=== PATIENT | male | born 1960 | race Caucasian/White ===

== ENCOUNTER 2018-04-15 10:38 | Emergency (ER) | payer OTHER, SELFPAY ==
--- NOTE | 2018-04-15 10:59 | ERPHSYRPT ---
- History of Present Illness Time Seen by Provider: 04/15/18 10:54 Source: patient Exam Limitations: no limitations Physician History: 57-year-old white male with history of cataracts, myocardial infarction, high blood pressure, COPD, GERD, panic disorder, cardiac pacemaker. Arrives with complaints of sudden onset of a slurry speech and confusion symptoms since 9:30 this morning. Past medical history includes cataracts, myocardial infarction, high blood pressure, COPD, GERD, panic disorder, cardiac pacemaker. Past surgical history includes cardiac catheter, pacemaker, right elbow replacement, prostate surgery Timing/Duration: today Severity: moderate Modifying Factors: Improves With: nothing Associated Symptoms: chest pain, other (left arm and leg pain), No nausea, No vomiting, No abdominal pain, No shortness of breath, No heartburn, No diaphoresis, No cough, No chills (didn't have any vomiting ), No fever, No headaches, No loss of appetite, No malaise, No rash, No syncope, No seizure (he had left arm and leg ), No weakness Allergies/Adverse Reactions: codeine Allergy (Severe, Verified 04/15/18 10:43) throat swelling Home Medications: Aspirin 81 gm Chew [Baby Aspirin 81 mg Chew] 81 mg DAILY 04/15/18 [History ] Metoprolol Tartrate 25 mg [Lopressor 25MG Tab] 25 mg DAILY 04/15/18 [ History] Omeprazole 20 MG [Prilosec 20 mg] 20 mg DAILY 04/15/18 [History] Pregabalin [Lyrica 100Mg] 225 mg DAILY 04/15/18 [History] Hx Tetanus, Diphtheria Vaccination/Date Given: Yes Hx Influenza Vaccination/Date Given: Yes Hx Pneumococcal Vaccination/Date Given: Yes - Review of Systems Constitutional: Other (well-developed well-nourished white male, slurred speech stuttering), No Fever, No Chills Eyes: No Symptoms Ears, Nose, & Throat: No Symptoms Respiratory: No Cough, No Dyspnea Cardiac: Chest Pain, No Edema, No Syncope Abdominal/Gastrointestinal: No Abdominal Pain, No Nausea, No Vomiting, No Diarrhea Genitourinary Symptoms: No Dysuria Musculoskeletal: No Back Pain, No Neck Pain Skin: No Rash Neurological: No Dizziness, No Focal Weakness, No Sensory Changes Psychological: No Symptoms Endocrine: No Symptoms All Other Systems: Reviewed and Negative - Past Medical History Pertinent Past Medical History: Yes ENT History: Cataracts Cardiac History: Myocardial Infarction (MS), Hypertension, Other Respiratory History: Other, COPD Musculoskeletal History: Other GI Medical History: No Pertinent History, GERD History: No Pertinent History Psycho-Social History: Panic Disorder Male Reproductive Disorders: No Pertinent History Other Medical History: , pacemaker - Past Surgical History Past Surgical History: Yes Cardiac: Cardiac Catheterization, Pacemaker Musculoskeletal: Orthopedic Surgery Male Surgical History: Prostate Surgery Other Surgical History: rt elbow replacement,prostate cancer - Social History Smoking Status: Current every day smoker How long have you smoked: 38 Exposure to second hand smoke: No Drug Use: none Patient Lives Alone: No - Nursing Vital Signs Nursing Vital Signs: Initial Vital Signs Temperature 98.2 F 04/15/18 10:52 Pulse Rate 60 04/15/18 10:52 Respiratory Rate 16 04/15/18 10:52 Blood Pressure 156/96 04/15/18 10:52 O2 Sat by Pulse Oximetry 96 04/15/18 10:52 Pain Scale Pain Intensity 4 - Physical Exam General Appearance: other (well-developed well-nourished white male, slurry speech stutters, alert, cooperative) Eye Exam: PERRL/EOMI, eyes nml inspection Ears, Nose, Throat Exam: normal ENT inspection, TMs normal, pharynx normal, moist mucous membranes Neck Exam: normal inspection, non-tender, supple, full range of motion Respiratory Exam: normal breath sounds, lungs clear, No respiratory distress Cardiovascular Exam: regular rate/rhythm, normal heart sounds, normal peripheral pulses Gastrointestinal/Abdomen Exam: soft, normal bowel sounds, No tenderness, No mass Back Exam: normal inspection, normal range of motion, No CVA tenderness, No vertebral tenderness Extremity Exam: normal inspection, normal range of motion, pelvis stable Neurologic Exam: alert, cooperative, 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 nml as tested, slurred speech, No motor deficits, No sensory deficit, No uncooperative, No intoxicated appearance, No facial droop (patient without facial droop tongue midline, dry box tender equal 5 over 5, able to perform finger to nose bilaterally, full range of motion all extremities) Skin Exam: normal color, warm, dry, No rash Lymphatic Exam: adenopathy SpO2 Interpretation: normal (96%) SpO2: 96 Oxygen Delivery: Room Air - Course Nursing assessment & vital signs reviewed: Yes EKG Interpreted by Me: RATE (54 bpm), NORMAL AXIS, Other (EKGsinus bradycardia, 54 bpm, normal axis, no acute ST or T wav compared to December 07, 2015) - Radiology Exams Chest X-ray Interpretation: Discussed w/ radiologist (chest x-ray: Impression: Normal heart and lungs with left sided dual-lead pacemaker. Bony thorax intact with mild degenerative changes) - CT Exams Head CT Interpretation: Discussed w/radiologist (head CT without contrast: Impression : 1. No acute intracranial abnormalities. 2. Minimal paranasal sinus disease. ) Ordered Tests: Active Orders 24 hr Category Date Time Status Accucheck STAT Care 04/15/18 10:49 Active EKG-ER Only STAT Care 04/15/18 10:49 Active IV Insertion STAT Care 04/15/18 10:49 Active Pulse Oximetry (ED) STAT Care 04/15/18 10:49 Active CHEST 1 VIEW (PORTABLE) Stat Exams 04/15/18 10:50 Completed HEAD WITHOUT CONTRAST [CT] Stat Exams 04/15/18 10:40 Completed CBC W DIFF Stat Lab 04/15/18 11:15 Completed CMP Stat Lab 04/15/18 11:15 Completed PROTIME WITH INR Stat Lab 04/15/18 11:15 Completed PTT Stat Lab 04/15/18 11:15 Completed TROPONIN Q3H Lab 04/15/18 11:15 Completed TROPONIN Q3H Lab 04/15/18 14:00 Ordered TROPONIN Q3H Lab 04/15/18 17:00 Ordered TROPONIN Q3H Lab 04/15/18 20:00 Ordered TROPONIN Q3H Lab 04/15/18 23:00 Ordered UA W/RFX UR CULTURE Stat Lab 04/15/18 10:50 Uncollected Urine Triage Profile Stat Lab 04/15/18 10:53 Uncollected Medication Summary Generic Name Dose Route Start Last Admin Trade Name Freq PRN Reason Stop Dose Admin Sodium Chloride 1,000 mls @ 50 mls/hr 04/15/18 11:00 04/15/18 11:23 Sodium Chloride 0.9% 1000 Ml IV 05/15/18 10:59 50 mls/hr .Q20H ETIENNE Administration Discontinued Medications Generic Name Dose Route Start Last Admin Trade Name Freq PRN Reason Stop Dose Admin Aspirin 324 mg 04/15/18 12:33 04/15/18 12:44 Baby Aspirin 81 Mg Chew PO 04/15/18 12:34 324 mg STAT ONE Administration Aspirin Confirm 04/15/18 12:40 Baby Aspirin 81 Mg Chew Administered 04/15/18 12:41 Dose 324 mg .ROUTE .STK-MED ONE Lab/Rad Data: Laboratory Result Diagrams 04/15/18 11:15 04/15/18 11:15 Laboratory Results 04/15/18 04/15/18 04/15/18 Range/Units 11:15 11:15 11:15 WBC (4.0-10.5) K/mm3 RBC (4.1-5.6) M/mm3 Hgb (12.5-18.0) gm/dl Hct (42-50) % MCV (78-100) fl MCH (26-32) pg MCHC (32-36) g/dl RDW (11.5-14.0) % Plt Count (150-450) K/mm3 MPV (6-9.5) fl Gran % (36.0-66.0) % Eos # (Auto) (0-0.5) Absolute Lymphs (auto) (1.0-4.6) Absolute Monos (auto) (0.0-1.3) Lymphocytes % (24.0-44.0) % Monocytes % (0.0-12.0) % Eosinophils % (0.00-5.0) % Basophils % (0.0-0.4) % Absolute Granulocytes (1.4-6.9) Basophils # (0-0.4) PT 10.9 (8.83-12.87) SECONDS INR 0.94 (0.8-3.0) APTT 27.0 (24.1-36.1) SECONDS Sodium 140 (137-145) mmol/L Potassium 4.4 (3.5-5.1) mmol/L Chloride 103 (98-107) mmol/L Carbon Dioxide 28 (22-30) mmol/L Anion Gap 12.8 (5-15) MEQ/L BUN 21 H (9-20) mg/dL Creatinine 0.86 (0.66-1.25) mg/dL Estimated GFR > 60.0 ML/MIN Glucose 75 (74-106) mg/dL Calcium 9.1 (8.4-10.2) mg/dL Total Bilirubin 0.20 (0.2-1.3) mg/dL AST 31 (17-59) U/L ALT 21 (0-50) U/L Alkaline Phosphatase 22 L (38-126) U/L Troponin I < 0.012 (0.000-0.034) ng/mL Serum Total Protein 6.7 (6.3-8.2) g/dL Albumin 4.2 (3.5-5.0) g/dL 04/15/18 Range/Units 11:15 WBC 10.4 (4.0-10.5) K/mm3 RBC 5.33 (4.1-5.6) M/mm3 Hgb 17.2 (12.5-18.0) gm/dl Hct 51.2 H (42-50) % MCV 96.1 (78-100) fl MCH 32.3 H (26-32) pg MCHC 33.6 (32-36) g/dl RDW 13.1 (11.5-14.0) % Plt Count 188 (150-450) K/mm3 MPV 9.0 (6-9.5) fl Gran % 61.7 (36.0-66.0) % Eos # (Auto) 0.31 (0-0.5) Absolute Lymphs (auto) 2.69 (1.0-4.6) Absolute Monos (auto) 0.94 (0.0-1.3) Lymphocytes % 25.8 (24.0-44.0) % Monocytes % 9.0 (0.0-12.0) % Eosinophils % 3.0 (0.00-5.0) % Basophils % 0.5 (0.0-0.4) % Absolute Granulocytes 6.43 (1.4-6.9) Basophils # 0.05 (0-0.4) PT (8.83-12.87) SECONDS INR (0.8-3.0) APTT (24.1-36.1) SECONDS Sodium (137-145) mmol/L Potassium (3.5-5.1) mmol/L Chloride (98-107) mmol/L Carbon Dioxide (22-30) mmol/L Anion Gap (5-15) MEQ/L BUN (9-20) mg/dL Creatinine (0.66-1.25) mg/dL Estimated GFR ML/MIN Glucose (74-106) mg/dL Calcium (8.4-10.2) mg/dL Total Bilirubin (0.2-1.3) mg/dL AST (17-59) U/L ALT (0-50) U/L Alkaline Phosphatase (38-126) U/L Troponin I (0.000-0.034) ng/mL Serum Total Protein (6.3-8.2) g/dL Albumin (3.5-5.0) g/dL - Progress Progress: improved Progress Note: 04/15/18 11:00 This is a 57-year-old white male with history of cataracts, myocardial infarction, high blood pressure, COPD, GERD, panic disorder, cardiac pacemaker. He is brought by his with complaints of sudden onset of slurry speech appear to be confused he occurred at approximately 9:30 today. On arrival patient does have slurry speech she is able to answer questions he does stutter at times. He is able to stick his tongue out straight he can wrinkle his forehead he does not have obvious facial droop. Glass Tinter are equal and symmetrical 5 over 5 patient is able to perform finger to nose bilaterally however he has some problems with the right side secondary to blood pressure cuff being in place. He is able to move both feet. Glascow coma scale is 15. 04/15/18 12:16 tele- neurology consult was ordered And patient was evaluated by Dr. Cristino Castillo I discussed case with him he does not feel like the patient has a a focal defect. He states that there were some inconsistencies on the speech evaluation. Patient has chronic problems with his left lower extremity he did not see any focal changes. He felt that the patient could be evaluated here consider a repeat CT in 24 hours. Patient's other labs essentially normal. Awaiting for troponin. Patient is having some bradycardia but blood pressure stable. 04/15/18 12:35 Patient's labs are essentially normal Dr. Castillo did feel like the patient could be given aspirin which he will be given here in the emergency room 324 mg. The patient's family decided that they wish the patient to be admitted to [facility] apparently their family doctor is Dr. Samuel and they were leaning towards [facility] anyway. Contacted Dr. Sen emergency room doctor at [facility] through [facility] one call. I've discussed the patient's case with her and she has excepted the patient. - Departure Time of Disposition: 12:37 Departure Disposition: Transfer ([facility] Dr. Sen) Clinical Impression: Speech disorder Change in mental status Qualifiers: Altered mental status type: unspecified Qualified Code(s): R41.82 - Altered mental status, unspecified Chest pain Qualifiers: Chest pain type: unspecified Qualified Code(s): R07.9 - Chest pain, unspecified Condition: Fair Critical Care Time: No Referrals: DAMIEN HARO [CONSULTING PHYSICIAN] -
[2018-04-15] MEDS ORDERED: Sodium Chloride 0.9% 1000 ML 1,000 ML IV SCH (11:00)
--- NOTE | 2018-04-15 11:12 | XRAY ---
Indication: Confusion, slurred speech, and left upper/lower extremity numbness. Multiple contiguous axial images obtained through the head without contrast. Comparison: None Ventriculosulcal pattern appears symmetric. No acute intracranial hemorrhage, abnormal extra-axial fluid collection, or mass effect. Fourth ventricle is midline without hydrocephalus. Bledsoe-white matter differentiation preserved. Bony calvarium intact. Minimal right ethmoid sinus mucosal thickening. Mastoid air cells are clear. Impression: 1. No acute intracranial abnormalities. 2. Minimal paranasal sinus disease. CT DI 65.42
--- NOTE | 2018-04-15 11:18 | XRAY ---
Indication: Headache, nausea, dizziness, and left extremity numbness. Comparison: None Portable chest demonstrates normal heart and lungs with left-sided dual-lead pacemaker. Bony thorax intact with mild degenerative changes.
[2018-04-15] MEDS ORDERED: Sodium Chloride 0.9% 1000 ML 1,000 ML ONE (11:20)
[2018-04-15 11:22] LABS: BASOPHIL % 0.5 % (0.0-0.4); Basophil (Absolute #) 0.05 (0-0.4); Eosinophil (Absolute #) 0.31 (0-0.5); Granulocyte Absolute (ANC) 6.43 (1.4-6.9); Granulocytes % 61.7 % (36.0-66.0); Hematocrit 51.2 % (42-50); Hemoglobin 17.2 gm/dl (12.5-18.0); Lymphocyte (Absolute #) 2.69 (1.0-4.6); Lymphocytes % 25.8 % (24.0-44.0); Mean Cell Volume 96.1 fl (78-100); Mean Corpuscular Hemoglobin 32.3 pg (26-32); Mean Corpuscular Hgb Concent. 33.6 g/dl (32-36); Monocyte (Absolute #) 0.94 (0.0-1.3); Platelet Count 188 K/mm3 (150-450); Red Blood Count 5.33 M/mm3 (4.1-5.6); Red Cell Distribution Width 13.1 % (11.5-14.0); White Blood Count 10.4 K/mm3 (4.0-10.5)
[2018-04-15 11:50] LABS: INR 0.94 (0.8-3.0)
[2018-04-15 12:00] LABS: ALBUMIN 4.2 g/dL (3.5-5.0); ALKALINE PHOSPHATASE 22 U/L (38-126); ANION GAP 12.8 MEQ/L (5-15); BLOOD UREA NITROGEN 21 mg/dL (9-20); CHLORIDE 103 mmol/L (98-107); Calcium 9.1 mg/dL (8.4-10.2); Carbon Dioxide 28 mmol/L (22-30); Creatinine 1 0.86 mg/dL (0.66-1.25); Glucose 75 mg/dL (74-106); Potassium 4.4 mmol/L (3.5-5.1); SGOT/AST 31 U/L (17-59); SGPT/ALT 21 U/L (0-50); SODIUM 140 mmol/L (137-145); Total Protein 6.7 g/dL (6.3-8.2)
[2018-04-15 12:16] VITALS: BP 157/93; PULSE 48; O2SAT 96
[2018-04-15] MEDS ORDERED: BABY ASPIRIN 81 MG CHEW PO ONE (12:33)
[2018-04-15] MEDS ORDERED: BABY ASPIRIN 81 MG CHEW ONE (12:40)
== END 2018-04-15 13:34 | disposition short-term general hospital (02) ==
LOC: ED 10:38
DX: R47.9 Unspecified speech disturbances (principal); R41.81 Age-related cognitive decline; R07.9 Chest pain, unspecified; I25.2 Old myocardial infarction; I10 Essential (primary) hypertension; J44.9 Chronic obstructive pulmonary disease, unspecified; K21.9 Gastro-esophageal reflux disease without esophagitis; Z95.0 Presence of cardiac pacemaker; Z72.0 Tobacco use; Z79.899 Other long term (current) drug therapy
CPT/HCPCS: 36000; 36415; 70450; 71045; 80053; 82962; 84484; 85025; 85610; 85730; 93005; 96360; 96361; 99285; Q3014; A9270-GY

== ENCOUNTER 2018-10-18 22:40 | Observation (INO) | payer MEDICAID, OTHER, SELFPAY ==
[2018-10-18] MEDS ORDERED: Sodium Chloride 0.9% 1000 ML 1,000 ML IV STA (23:00)
[2018-10-18] MEDS ORDERED: THIAMINE 200 MG/2 ML IV ONE (23:07)
[2018-10-18] MEDS ORDERED: Sodium Chloride 0.9% 1000 ML 1,000 ML ONE (23:09)
[2018-10-18] MEDS ORDERED: Narcan 0.4 MG/ML ONE (23:09)
[2018-10-18] MEDS ORDERED: THIAMINE 200 MG/2 ML ONE (23:09)
--- NOTE | 2018-10-18 23:11 | ERPHSYRPT ---
- History of Present Illness Time Seen by Provider: 10/18/18 23:08 Source: family Physician History: 58-year-old white male brought by medics with complaint of decreased level consciousness symptoms for one hour prior to arrival. Patient's she feels that the patient might have been using some sort of substance. On arrival patient is essentially unresponsive he does was eyes shut with examination. Past medical history includes cataracts, myocardial infarction, high blood pressure, COPD, GERD, panic disorder, cardiac pacemaker. Past surgical history includes cardiac catheter, pacemaker, prostate surgery. Right elbow replacement. Social history positive history of meth use in the past. Timing/Duration: today (one hour prior to arrival) Severity: moderate Associated Symptoms: other (unable to obtain review systems from this patient) , No nausea, No vomiting, No abdominal pain, No shortness of breath, No heartburn, No diaphoresis Allergies/Adverse Reactions: codeine Allergy (Severe, Verified 04/15/18 10:43) throat swelling Home Medications: Aspirin 81 gm Chew [Baby Aspirin 81 mg Chew] 81 mg PO DAILY 04/15/18 [ History] Metoprolol Tartrate 25 mg [Lopressor 25MG Tab] 50 mg PO DAILY 04/15/18 [ History] Omeprazole 20 MG [Prilosec 20 mg] 20 mg PO DAILY 04/15/18 [History] Pregabalin [Lyrica 100Mg] 300 mg PO DAILY 04/15/18 [History] Albuterol Sulfate [Ventolin Hfa] 8 gm IH Q4H PRN 10/18/18 [History] Mirtazapine [Remeron] 45 mg PO DAILY 10/18/18 [History] Temazepam [Restoril] 7.5 mg PO DAILY 10/18/18 [History] Tiotropium Br/Olodaterol HCl [Stiolto Respimat Inhal [place]] 2 puff IH DAILY 12/31 [History] Hx Tetanus, Diphtheria Vaccination/Date Given: Yes Hx Influenza Vaccination/Date Given: Yes Hx Pneumococcal Vaccination/Date Given: Yes - Review of Systems Constitutional: No Fever, No Chills Eyes: No Symptoms Ears, Nose, & Throat: No Symptoms Respiratory: No Cough, No Dyspnea Cardiac: No Chest Pain, No Edema, No Syncope Abdominal/Gastrointestinal: No Abdominal Pain, No Nausea, No Vomiting, No Diarrhea Genitourinary Symptoms: No Dysuria Musculoskeletal: No Back Pain, No Neck Pain Skin: No Rash Neurological: Other (Decreased level of consciousness for one hour) Psychological: Drug Abuse Endocrine: No Symptoms All Other Systems: Reviewed and Negative - Past Medical History Pertinent Past Medical History: Yes ENT History: Cataracts Cardiac History: Myocardial Infarction (OR), Hypertension, Other Respiratory History: Other, COPD Musculoskeletal History: Other GI Medical History: No Pertinent History, GERD History: No Pertinent History Psycho-Social History: Panic Disorder Male Reproductive Disorders: No Pertinent History Other Medical History: , pacemaker - Past Surgical History Past Surgical History: Yes Cardiac: Cardiac Catheterization, Pacemaker Musculoskeletal: Orthopedic Surgery Male Surgical History: Prostate Surgery Other Surgical History: rt elbow replacement,prostate cancer - Social History Smoking Status: Current every day smoker How long have you smoked: 38 Exposure to second hand smoke: No Drug Use: none Patient Lives Alone: No - Nursing Vital Signs Nursing Vital Signs: Initial Vital Signs Pulse Rate 70 10/18/18 23:02 Respiratory Rate 16 10/18/18 23:02 Blood Pressure 106/70 10/18/18 23:02 O2 Sat by Pulse Oximetry 93 L 10/18/18 23:02 - Physical Exam General Appearance: other (Well-developed white male obtunded) Eye Exam: PERRL/EOMI, eyes nml inspection Ears, Nose, Throat Exam: normal ENT inspection, TMs normal, pharynx normal, moist mucous membranes Neck Exam: normal inspection, non-tender, supple, full range of motion Respiratory Exam: normal breath sounds, lungs clear, No respiratory distress Cardiovascular Exam: regular rate/rhythm, normal heart sounds, normal peripheral pulses, capillary refill <2 sec Gastrointestinal/Abdomen Exam: soft, normal bowel sounds, No tenderness, No mass Back Exam: normal inspection, normal range of motion, No CVA tenderness, No vertebral tenderness Extremity Exam: normal inspection, normal range of motion, pelvis stable Neurologic Exam: cooperative, reconditioner II-XII nml as tested, nml cerebellar function , sensation nml, No oriented x 3 (Patient obtunded), No motor deficits Skin Exam: normal color, warm, dry, No rash Lymphatic Exam: No adenopathy SpO2 Interpretation: normal - Course EKG Interpreted by Me: RATE (70 bpm), Other (EKG: Atrial paced rhythm, 70 bpm,S AXISI/QIII pattern, no acute ST or T wave changes) - Radiology Exams Chest X-ray Interpretation: Interpreted by me (no acute disease process noted), Reviewed by me ( headaches the) - CT Exams Cervical Spine CT Interpretation: Tele-radiologist Report (no acute fractures) Head CT Interpretation: Tele-radiologist Report (no acute intracranial abnormalities) Ordered Tests: Active Orders 24 hr Category Date Time Status EKG-ER Only STAT Care 10/18/18 23:00 Active IV Insertion STAT Care 10/18/18 23:00 Active Oxygen-ED Only Nasal Cannula 2 lpm Care 10/18/18 23:26 Active CERVICAL SPINE WO CONTRAST [CT] Stat Exams 10/18/18 23:07 Taken CHEST 1 VIEW (PORTABLE) Stat Exams 10/18/18 23:00 Taken HEAD WITHOUT CONTRAST [CT] Stat Exams 10/18/18 23:07 Taken ACETAMINOPHEN Stat Lab 10/18/18 23:14 Completed ARTERIAL BLOOD GASES Stat Lab 10/18/18 23:30 Completed CBC W DIFF Stat Lab 10/18/18 23:14 Completed CMP Stat Lab 10/18/18 23:14 Completed ETHYL ALCOHOL Stat Lab 10/18/18 23:14 Completed SALICYLATE Stat Lab 10/18/18 23:14 Completed TROPONIN Q3H Lab 10/19/18 00:00 Completed TROPONIN Q3H Lab 10/19/18 04:45 Ordered TROPONIN Q3H Lab 10/19/18 07:45 Ordered TROPONIN Q3H Lab 10/19/18 10:45 Ordered TROPONIN Q3H Lab 10/19/18 13:45 Ordered Medication Summary Discontinued Medications Generic Name Dose Route Start Last Admin Trade Name Deanegloq PRN Reason Stop Dose Admin Sodium Chloride 1,000 mls @ 999 mls/hr 10/18/18 23:00 10/19/18 00:22 Sodium Chloride 0.9% 1000 Ml IV 10/19/18 00:00 Infused .Q1H1M STA Infusion Sodium Chloride Confirm 10/18/18 23:09 Sodium Chloride 0.9% 1000 Ml Administered 10/18/18 23:10 Dose 1,000 mls @ ud .ROUTE .STK-MED ONE Naloxone HCl Confirm 10/18/18 23:09 Narcan 0.4 Mg/Ml Administered 10/18/18 23:10 Dose 0.4 mg .ROUTE .STK-MED ONE Naloxone HCl 0.4 mg 10/18/18 23:24 10/18/18 23:25 Narcan 0.4 Mg/Ml IV 10/18/18 23:25 0.4 mg STAT ONE Administration Thiamine HCl 100 mg 10/18/18 23:07 10/18/18 23:21 Thiamine 200 Mg/2 Ml IV 10/18/18 23:08 100 mg STAT ONE Administration Thiamine HCl Confirm 10/18/18 23:09 Thiamine 200 Mg/2 Ml Administered 10/18/18 23:10 Dose 200 mg .ROUTE .STK-MED ONE Lab/Rad Data: Laboratory Result Diagrams 10/18/18 23:14 10/18/18 23:14 Laboratory Results 10/19/18 10/18/18 10/18/18 Range/Units 00:00 23:30 23:14 WBC (4.0-10.5) K/mm3 RBC (4.1-5.6) M/mm3 Hgb (12.5-18.0) gm/dl Hct (42-50) % MCV (78-100) fl MCH (26-32) pg MCHC (32-36) g/dl RDW (11.5-14.0) % Plt Count (150-450) K/mm3 MPV (6-9.5) fl Gran % (36.0-66.0) % Eos # (Auto) (0-0.5) Absolute Lymphs (auto) (1.0-4.6) Absolute Monos (auto) (0.0-1.3) Lymphocytes % (24.0-44.0) % Monocytes % (0.0-12.0) % Eosinophils % (0.00-5.0) % Basophils % (0.0-0.4) % Absolute Granulocytes (1.4-6.9) Basophils # (0-0.4) Puncture Site RIGHT RADIAL pCO2 43 (35-45) mmHg pO2 64 L (75-100) mmHg Base Excess 0.7 (-2.0-2.0) O2 Saturation 90.2 L (94-100) g/dF ABG pH 7.39 (7.35-7.45) ABG HCO3 26.0 (22-28) ABG O2 Sat (Measured) 94.2 L (95-100) % Chandler Test YES A-a Gradient 32 a/A Ratio 0.67 Hemoglobin 15.9 Carboxyhemoglobin 4.0 (0.0-6.9) % THgb Methemoglobin 0.3 L (1.4-1.5) % Temperature 37.0 C POC O2 Flow Rate 21 % Sodium 139 (137-145) mmol/L Potassium 3.4 L 3.8 (3.5-5.1) mmol/L Chloride 103 (98-107) mmol/L Carbon Dioxide 28 (22-30) mmol/L Anion Gap 11.2 (5-15) MEQ/L BUN 21 H (9-20) mg/dL Creatinine 1.22 (0.66-1.25) mg/dL Estimated GFR > 60.0 ML/MIN Glucose 96 (74-106) mg/dL Calcium 9.9 (8.4-10.2) mg/dL Total Bilirubin 0.60 (0.2-1.3) mg/dL AST 72 H (17-59) U/L ALT 41 (0-50) U/L Alkaline Phosphatase 27 L (38-126) U/L Troponin I < 0.012 (0.000-0.034) ng/mL Serum Total Protein 6.9 (6.3-8.2) g/dL Albumin 4.1 (3.5-5.0) g/dL Urine Color (YELLOW) Urine Appearance (CLEAR) Urine pH (5-6) Ur Specific [place] (1.005-1.025) Urine Protein (Negative) Urine Ketones (NEGATIVE) Urine Blood (0-5) Ace/ul Urine Nitrite (NEGATIVE) Urine Bilirubin (NEGATIVE) Urine Urobilinogen (0-1) mg/dL Ur Leukocyte Esterase (NEGATIVE) Urine WBC (Auto) (0-5) /HPF Urine RBC (Auto) (0-2) /HPF U Epithel Cells (Auto) (FEW) /HPF Urine Bacteria (Auto) (NEGATIVE) /HPF Urine Mucus (Auto) (NEGATIVE) /HPF Urine Culture Reflexed (NO) Urine Glucose (NEGATIVE) mg/dL Salicylates < 1.0 L (2-20) mg/dL Urine Opiates Level (NEGATIVE) Ur Methadone (NEGATIVE) Acetaminophen < 10 L (10-30) ug/ml Urine Barbiturates (NEGATIVE) Ur Phencyclidine (PCP) (NEGATIVE) Urine Amphetamine (NEGATIVE) U Benzodiazepine Level (NEGATIVE) Urine Cocaine (NEGATIVE) Urine Marijuana (THC) (NEGATIVE) Ethyl Alcohol < 10 (0-10) mg/dL 10/18/18 10/18/18 10/18/18 Range/Units 23:14 00:04 00:04 WBC 8.6 (4.0-10.5) K/mm3 RBC 5.08 (4.1-5.6) M/mm3 Hgb 16.0 (12.5-18.0) gm/dl Hct 48.2 (42-50) % MCV 94.9 (78-100) fl MCH 31.5 (26-32) pg MCHC 33.2 (32-36) g/dl RDW 12.9 (11.5-14.0) % Plt Count 206 (150-450) K/mm3 MPV 10.0 H (6-9.5) fl Gran % 54.6 (36.0-66.0) % Eos # (Auto) 0.29 (0-0.5) Absolute Lymphs (auto) 2.81 (1.0-4.6) Absolute Monos (auto) 0.76 (0.0-1.3) Lymphocytes % 32.6 (24.0-44.0) % Monocytes % 8.8 (0.0-12.0) % Eosinophils % 3.4 (0.00-5.0) % Basophils % 0.6 (0.0-0.4) % Absolute Granulocytes 4.72 (1.4-6.9) Basophils # 0.05 (0-0.4) Puncture Site pCO2 (35-45) mmHg pO2 (75-100) mmHg Base Excess (-2.0-2.0) O2 Saturation (94-100) g/dF ABG pH (7.35-7.45) ABG HCO3 (22-28) ABG O2 Sat (Measured) (95-100) % Chandler Test A-a Gradient a/A Ratio Hemoglobin Carboxyhemoglobin (0.0-6.9) % THgb Methemoglobin (1.4-1.5) % Temperature C POC O2 Flow Rate % Sodium (137-145) mmol/L Potassium (3.5-5.1) mmol/L Chloride (98-107) mmol/L Carbon Dioxide (22-30) mmol/L Anion Gap (5-15) MEQ/L BUN (9-20) mg/dL Creatinine (0.66-1.25) mg/dL Estimated GFR ML/MIN Glucose (74-106) mg/dL Calcium (8.4-10.2) mg/dL Total Bilirubin (0.2-1.3) mg/dL AST (17-59) U/L ALT (0-50) U/L Alkaline Phosphatase (38-126) U/L Troponin I (0.000-0.034) ng/mL Serum Total Protein (6.3-8.2) g/dL Albumin (3.5-5.0) g/dL Urine Color YELLOW (YELLOW) Urine Appearance CLEAR (CLEAR) Urine pH 7.0 (5-6) Ur Specific [place] 1.018 (1.005-1.025) Urine Protein NEGATIVE (Negative) Urine Ketones NEGATIVE (NEGATIVE) Urine Blood NEGATIVE (0-5) Ace/ul Urine Nitrite NEGATIVE (NEGATIVE) Urine Bilirubin NEGATIVE (NEGATIVE) Urine Urobilinogen NEGATIVE (0-1) mg/dL Ur Leukocyte Esterase TRACE (NEGATIVE) Urine WBC (Auto) 6-10 (0-5) /HPF Urine RBC (Auto) 0-2 (0-2) /HPF U Epithel Cells (Auto) RARE (FEW) /HPF Urine Bacteria (Auto) NONE SEEN (NEGATIVE) /HPF Urine Mucus (Auto) SLIGHT (NEGATIVE) /HPF Urine Culture Reflexed NO (NO) Urine Glucose NEGATIVE (NEGATIVE) mg/dL Salicylates (2-20) mg/dL Urine Opiates Level NEGATIVE (NEGATIVE) Ur Methadone NEGATIVE (NEGATIVE) Acetaminophen (10-30) ug/ml Urine Barbiturates NEGATIVE (NEGATIVE) Ur Phencyclidine (PCP) NEGATIVE (NEGATIVE) Urine Amphetamine POSITIVE (NEGATIVE) U Benzodiazepine Level NEGATIVE (NEGATIVE) Urine Cocaine NEGATIVE (NEGATIVE) Urine Marijuana (THC) POSITIVE (NEGATIVE) Ethyl Alcohol (0-10) mg/dL - Progress Progress: unchanged, improved Progress Note: 10/19/18 02:51 This is a 58-year-old white male with history of cataracts, myocardial infarction, high blood pressure, COPD, GERD, panic disorder, P cardiac pacemaker whose states the patient uses methamphetamines. Patient apparently brought from his home where he was found to be unresponsive. On arrival patient will respond to painful stimuli however will not open his eyes to command and will not move to command. Patient with chest x-ray essentially normal perhaps slightly increased lung markings patient was in atrial paced rhythm on arrival Patient's vitals temperature 98.3 pulse 122 respiration 22 blood pressure 140/ 82 and sats are 91% Patient is given IV normal saline thiamine he has been provided with oxygen. Patient's labs EKG atrial paced rhythm 70 bpm axis/Qiii pattern no acute ST or T wave changes are noted patient's head CT no acute intercranial process patient 's CT C-spine no acute fractures . Patient's chest x-ray mild increased pulmonary markings patient's urine drug screen positive for THC, positive for methamphetamines patient's urinalysis 6- 10 white cells negative nitrites patient's chemistry sodium 139 potassium 3.8 chloride 103 bicarbonate 28 BUN 21 Acetaminophen level less than 10 salicylate level less than 1.0 alcohol less than 10 CBC white blood cell 8.6 hemoglobin 16.0 hematocrit 48.2 platelets 206 ABGs pH 7.39 PCO2 43 PO2 64 bicarbonate 26 O2 sats 94.2 Impression decreased level of consciousness. Substance abuse. Plan patient has been given IV normal saline bolus patient was given thiamine 100 mg IV. I have offered the patient's transfer of the patient to [facility] or placement on ICU observation here in [place]. I discussed case with Dr. Canales will place patient on observation continue every 4 hours neuro checks continue IV normal saline. - Departure Departure Disposition: Observation Clinical Impression: Decreased level of consciousness, Substance abuse Change in mental status Qualifiers: Altered mental status type: unspecified Qualified Code(s): R41.82 - Altered mental status, unspecified Condition: Fair Critical Care Time: No Referrals: LUCIAN CROWLEY [Primary Care Provider] -
[2018-10-18 23:17] LABS: BASOPHIL % 0.6 % (0.0-0.4); Basophil (Absolute #) 0.05 (0-0.4); Eosinophil % 3.4 % (0.00-5.0); Eosinophil (Absolute #) 0.29 (0-0.5); Granulocyte Absolute (ANC) 4.72 (1.4-6.9); Granulocytes % 54.6 % (36.0-66.0); Hematocrit 48.2 % (42-50); Lymphocyte (Absolute #) 2.81 (1.0-4.6); Lymphocytes % 32.6 % (24.0-44.0); Mean Cell Volume 94.9 fl (78-100); Mean Corpuscular Hemoglobin 31.5 pg (26-32); Mean Corpuscular Hgb Concent. 33.2 g/dl (32-36); Monocyte (Absolute #) 0.76 (0.0-1.3); Monocytes % 8.8 % (0.0-12.0); Platelet Count 206 K/mm3 (150-450); Red Blood Count 5.08 M/mm3 (4.1-5.6); Red Cell Distribution Width 12.9 % (11.5-14.0); White Blood Count 8.6 K/mm3 (4.0-10.5)
[2018-10-18] MEDS ORDERED: Narcan 0.4 MG/ML IV ONE (23:24)
[2018-10-18 23:25] LABS: ACETAMINOPHEN < 10 ug/ml (10-30); ALBUMIN 4.1 g/dL (3.5-5.0); ALKALINE PHOSPHATASE 27 U/L (38-126); ANION GAP 11.2 MEQ/L (5-15); BLOOD UREA NITROGEN 21 mg/dL (9-20); CHLORIDE 103 mmol/L (98-107); Calcium 9.9 mg/dL (8.4-10.2); Carbon Dioxide 28 mmol/L (22-30); Creatinine 1 1.22 mg/dL (0.66-1.25); ETHYL ALCOHOL < 10 mg/dL (0-10); Glucose 96 mg/dL (74-106); Potassium 3.8 mmol/L (3.5-5.1); SALICYLATE < 1.0 mg/dL (2-20); SGOT/AST 72 U/L (17-59); SGPT/ALT 41 U/L (0-50); SODIUM 139 mmol/L (137-145); Total Protein 6.9 g/dL (6.3-8.2)
[2018-10-18 23:32] LABS: A-aADO2 32; ABG HEMOGLOBIN 15.9; ABG POTASSIUM 3.4 (3.5-5.1); ABG SITE RIGHT RADIAL; ALLEN TEST OK? YES; ARTERIAL BLD GAS O2 SATURATION 94.2 % (95-100); ARTERIAL BLOOD GAS BASE EXCESS 0.7 (-2.0-2.0); ARTERIAL BLOOD GAS FIO2 21 %; ARTERIAL BLOOD GAS PCO2 43 mmHg (35-45); ARTERIAL BLOOD GAS PO2 64 mmHg (75-100); ARTERIAL BLOOD GAS pH 7.39 (7.35-7.45); HGB O2 SAT 90.2 g/dF (94-100); Methhemoglobin 0.3 % (1.4-1.5); paO2 pAO1 0.67
[2018-10-19 00:23] LABS: Appearance CLEAR (CLEAR); Bilirubin NEGATIVE (NEGATIVE); Blood NEGATIVE Ery/ul (0-5); Epithelial Cells RARE /HPF (FEW); Glucose NEGATIVE (NEGATIVE); Ketones NEGATIVE (NEGATIVE); Leukocyte Esterase TRACE (NEGATIVE); Mucus SLIGHT /HPF (NEGATIVE); Nitrite NEGATIVE (NEGATIVE); Protein,Urine Dip NEGATIVE (Negative); RBC 0-2 /HPF (0-2); Specific Gravity 1.018 (1.005-1.025); Urobilinogen NEGATIVE mg/dL (0-1)
[2018-10-19 00:30] LABS: Barbiturate,Urine NEGATIVE (NEGATIVE); Benzodiazepine,Urine NEGATIVE (NEGATIVE); Cocaine,Urine NEGATIVE (NEGATIVE); Methadone,Urine NEGATIVE (NEGATIVE); Opiate,Urine NEGATIVE (NEGATIVE); PCP,Urine NEGATIVE (NEGATIVE); THC,Urine POSITIVE (NEGATIVE)
[2018-10-19 01:17] LABS: Amphetamine,Urine POSITIVE (NEGATIVE)
[2018-10-19 01:32] LABS: Bacteria NONE SEEN /HPF (NEGATIVE)
[2018-10-19] MEDS ORDERED: Sodium Chloride 0.9% 1000 ML 1,000 ML IV SCH (03:36)
[2018-10-19 05:02] LABS: BASOPHIL % 0.4 % (0.0-0.4); Basophil (Absolute #) 0.03 (0-0.4); Eosinophil % 4.2 % (0.00-5.0); Eosinophil (Absolute #) 0.35 (0-0.5); Granulocyte Absolute (ANC) 4.89 (1.4-6.9); Granulocytes % 58.2 % (36.0-66.0); Hematocrit 50.7 % (42-50); Hemoglobin 16.8 gm/dl (12.5-18.0); Lymphocyte (Absolute #) 2.27 (1.0-4.6); Mean Cell Volume 95.5 fl (78-100); Mean Corpuscular Hemoglobin 31.6 pg (26-32); Mean Corpuscular Hgb Concent. 33.1 g/dl (32-36); Mean Platelet Volume 9.5 fl (6-9.5); Monocyte (Absolute #) 0.86 (0.0-1.3); Monocytes % 10.2 % (0.0-12.0); Platelet Count 161 K/mm3 (150-450); Red Blood Count 5.31 M/mm3 (4.1-5.6); Red Cell Distribution Width 13.1 % (11.5-14.0); White Blood Count 8.4 K/mm3 (4.0-10.5)
[2018-10-19 05:55] LABS: ALBUMIN 3.6 g/dL (3.5-5.0); ALKALINE PHOSPHATASE 23 U/L (38-126); ANION GAP 9.2 MEQ/L (5-15); BLOOD UREA NITROGEN 19 mg/dL (9-20); CHLORIDE 107 mmol/L (98-107); Calcium 9.2 mg/dL (8.4-10.2); Carbon Dioxide 27 mmol/L (22-30); Creatinine 1 0.97 mg/dL (0.66-1.25); Glucose 94 mg/dL (74-106); Potassium 3.9 mmol/L (3.5-5.1); SGOT/AST 61 U/L (17-59); SGPT/ALT 37 U/L (0-50); SODIUM 139 mmol/L (137-145); Total Protein 6.3 g/dL (6.3-8.2)
--- NOTE | 2018-10-19 08:40 | PCM.SSS ---
History of Present Illness - Chief Complaint Chief Complaint: substance abuse, decreased LOC History of Present Illness: is a 58 year old male brought in by his significant other with complaints of decreased level of consciousness, he is alert and oriented this morning with no complaints. he denies illicit drug use yesterday, states he uses CBD oil and last smoked meth 2-3 days ago. he recalls finding some old sleeping pills at hold, remeron and "trazapine" he states he took 1 rememeron and 2 of the other and then went next door to his neighbors, he came home and was feeling very sleepy and that was the last thing he remembers from last night , he feels great today and wishes to go home. no attempt to hurt himself etc. - Review of Systems Constitutional: No Fever, No Chills Respiratory: No Cough, No Short Of Breath Cardiac: No Chest Pain, No Edema, No Syncope Abdominal/Gastrointestinal: No Abdominal Pain, No Nausea, No Vomiting, No Diarrhea Genitourinary Symptoms: No Dysuria Psychological: Drug Abuse All Other Systems: Reviewed and Negative Medications & Allergies Home Medications: Home Medication List Aspirin 81 gm Chew [Baby Aspirin 81 mg Chew] 81 mg PO DAILY 04/15/18 [ History Confirmed 10/18/18] Metoprolol Tartrate 25 mg [Lopressor 25MG Tab] 50 mg PO DAILY 04/15/18 [ History Confirmed 10/18/18] Pregabalin [Lyrica 100Mg] 300 mg PO BID 04/15/18 [History Confirmed 10/19/18] Albuterol Sulfate [Ventolin Hfa] 2 puff IH UD PRN 10/18/18 [History Confirmed ] Tiotropium Br/Olodaterol HCl [Stiolto Respimat Inhal [place]] 2 puff IH QAM [History Confirmed 10/19/18] Calcium Citrate/Vitamin D2 [Vahid-Citrate Plus Vitamin D Tab] 1 tab PO DAILY 10/19 [History Confirmed 10/19/18] Magnesium Oxide [Magnesium] 400 mg PO DAILY 10/19/18 [History Confirmed 10/19/18 ] Multivitamin [Multivitamins] 1 each PO DAILY 10/19/18 [History Confirmed ] Omeprazole 40 mg PO DAILY 10/19/18 [History Confirmed 10/19/18] Allergies/Adverse Reactions: Allergies Allergy/AdvReac Type Severity Reaction Status Date / Time codeine Allergy Severe throat Verified 04/15/18 10:43 swelling - Past Medical History Past Medical History: Yes Neurological History: Migraines, TIA ENT History: Cataracts Cardiac History: Myocardial Infarction ([place]), Hypertension, Other Respiratory History: COPD, Emphysema, Other Endocrine Medical History: No Pertinent History Musculoskelatal History: Other GI Medical History: No Pertinent History, GERD History: No Pertinent History Pyscho-Social History: Panic Disorder Male Reproductive Disorders: Prostate Problems Comment: atrial pacemaker - Past Surgical History Past Surgical History: Yes Neuro Surgical History: No Pertinent History Cardiac History: Cardiac Catheterization, Pacemaker Respiratory Surgery: No Pertinent History GI Surgical History: Cholecystectomy Musculskeletal Surgical Hx: Orthopedic Surgery Male Surgical History: Prostate Surgery Other Surgical History: rt elbow replacement fx left foot ,prostate cancer - Social History Smoking Status: Current every day smoker How long have you smoked: 40 yrs Exposure to second hand smoke: No Alcohol: None Drug Use: marijuana, methamphetamines - Physical Exam Vital Signs: Vital Signs - 24 hr Temp Pulse Resp BP Pulse Ox 10/19/18 07:03 97.5 F 70 18 118/77 96 10/19/18 05:34 96.2 F 70 18 111/86 97 10/19/18 04:07 70 12 140/98 100 10/19/18 02:40 70 16 107/83 91 L 10/19/18 01:40 70 16 108/82 98 10/19/18 00:55 70 14 115/84 97 10/18/18 23:50 70 18 111/79 94 L 10/18/18 23:02 70 16 106/70 93 L Oxygen-Last 24 hours O2 Percentage 2 Liters = 28% O2 Percentage 2 Liters = 28% O2 Percentage 2 Liters = 28% O2 Percentage 2 Liters = 28% O2 Percentage 2 Liters = 28% O2 Percentage 2 Liters = 28% General Appearance: no apparent distress, alert Neurologic Exam: alert, oriented x 3, cooperative, normal mood/affect, nml cerebellar function, nml station & gait, sensation nml, No motor deficits Eye Exam: PERRL/EOMI, eyes nml inspection Neck Exam: normal inspection, non-tender, supple, full range of motion Respiratory Exam: normal breath sounds, lungs clear, No respiratory distress Cardiovascular Exam: regular rate/rhythm, normal heart sounds, normal peripheral pulses Gastrointestinal/Abdomen Exam: soft, normal bowel sounds, No tenderness, No mass Extremity Exam: normal inspection, normal range of motion, pelvis stable Skin Exam: normal color, warm, dry, No rash Results - Labs Lab/Micro Results: Lab Results-Last 24 Hours 10/18/18 10/18/18 10/18/18 Range/Units 00:04 00:04 23:14 WBC 8.6 (4.0-10.5) K/mm3 RBC 5.08 (4.1-5.6) M/mm3 Hgb 16.0 (12.5-18.0) gm/dl Hct 48.2 (42-50) % MCV 94.9 (78-100) fl MCH 31.5 (26-32) pg MCHC 33.2 (32-36) g/dl RDW 12.9 (11.5-14.0) % Plt Count 206 (150-450) K/mm3 MPV 10.0 H (6-9.5) fl Gran % 54.6 (36.0-66.0) % Eos # (Auto) 0.29 (0-0.5) Absolute Lymphs (auto) 2.81 (1.0-4.6) Absolute Monos (auto) 0.76 (0.0-1.3) Lymphocytes % 32.6 (24.0-44.0) % Monocytes % 8.8 (0.0-12.0) % Eosinophils % 3.4 (0.00-5.0) % Basophils % 0.6 (0.0-0.4) % Absolute Granulocytes 4.72 (1.4-6.9) Basophils # 0.05 (0-0.4) Puncture Site pCO2 (35-45) mmHg pO2 (75-100) mmHg Base Excess (-2.0-2.0) O2 Saturation (94-100) g/dF ABG pH (7.35-7.45) ABG HCO3 (22-28) ABG O2 Sat (Measured) (95-100) % Chandler Test A-a Gradient a/A Ratio Hemoglobin Carboxyhemoglobin (0.0-6.9) % THgb Methemoglobin (1.4-1.5) % Temperature C POC O2 Flow Rate % Sodium (137-145) mmol/L Potassium (3.5-5.1) mmol/L Chloride (98-107) mmol/L Carbon Dioxide (22-30) mmol/L Anion Gap (5-15) MEQ/L BUN (9-20) mg/dL Creatinine (0.66-1.25) mg/dL Estimated GFR ML/MIN Glucose (74-106) mg/dL Calcium (8.4-10.2) mg/dL Total Bilirubin (0.2-1.3) mg/dL AST (17-59) U/L ALT (0-50) U/L Alkaline Phosphatase (38-126) U/L Troponin I (0.000-0.034) ng/mL Serum Total Protein (6.3-8.2) g/dL Albumin (3.5-5.0) g/dL Urine Color YELLOW (YELLOW) Urine Appearance CLEAR (CLEAR) Urine pH 7.0 (5-6) Ur Specific [place] 1.018 (1.005-1.025) Urine Protein NEGATIVE (Negative) Urine Ketones NEGATIVE (NEGATIVE) Urine Blood NEGATIVE (0-5) Ace/ul Urine Nitrite NEGATIVE (NEGATIVE) Urine Bilirubin NEGATIVE (NEGATIVE) Urine Urobilinogen NEGATIVE (0-1) mg/dL Ur Leukocyte Esterase TRACE (NEGATIVE) Urine WBC (Auto) 6-10 (0-5) /HPF Urine RBC (Auto) 0-2 (0-2) /HPF U Epithel Cells (Auto) RARE (FEW) /HPF Urine Bacteria (Auto) NONE SEEN (NEGATIVE) /HPF Urine Mucus (Auto) SLIGHT (NEGATIVE) /HPF Urine Culture Reflexed NO (NO) Urine Glucose NEGATIVE (NEGATIVE) mg/dL Salicylates (2-20) mg/dL Urine Opiates Level NEGATIVE (NEGATIVE) Ur Methadone NEGATIVE (NEGATIVE) Acetaminophen (10-30) ug/ml Urine Barbiturates NEGATIVE (NEGATIVE) Ur Phencyclidine (PCP) NEGATIVE (NEGATIVE) Urine Amphetamine POSITIVE (NEGATIVE) U Benzodiazepine Level NEGATIVE (NEGATIVE) Urine Cocaine NEGATIVE (NEGATIVE) Urine Marijuana (THC) POSITIVE (NEGATIVE) Ethyl Alcohol (0-10) mg/dL 10/18/18 10/18/18 10/19/18 Range/Units 23:14 23:30 00:00 WBC (4.0-10.5) K/mm3 RBC (4.1-5.6) M/mm3 Hgb (12.5-18.0) gm/dl Hct (42-50) % MCV (78-100) fl MCH (26-32) pg MCHC (32-36) g/dl RDW (11.5-14.0) % Plt Count (150-450) K/mm3 MPV (6-9.5) fl Gran % (36.0-66.0) % Eos # (Auto) (0-0.5) Absolute Lymphs (auto) (1.0-4.6) Absolute Monos (auto) (0.0-1.3) Lymphocytes % (24.0-44.0) % Monocytes % (0.0-12.0) % Eosinophils % (0.00-5.0) % Basophils % (0.0-0.4) % Absolute Granulocytes (1.4-6.9) Basophils # (0-0.4) Puncture Site RIGHT RADIAL pCO2 43 (35-45) mmHg pO2 64 L (75-100) mmHg Base Excess 0.7 (-2.0-2.0) O2 Saturation 90.2 L (94-100) g/dF ABG pH 7.39 (7.35-7.45) ABG HCO3 26.0 (22-28) ABG O2 Sat (Measured) 94.2 L (95-100) % Chandler Test YES A-a Gradient 32 a/A Ratio 0.67 Hemoglobin 15.9 Carboxyhemoglobin 4.0 (0.0-6.9) % THgb Methemoglobin 0.3 L (1.4-1.5) % Temperature 37.0 C POC O2 Flow Rate 21 % Sodium 139 (137-145) mmol/L Potassium 3.8 3.4 L (3.5-5.1) mmol/L Chloride 103 (98-107) mmol/L Carbon Dioxide 28 (22-30) mmol/L Anion Gap 11.2 (5-15) MEQ/L BUN 21 H (9-20) mg/dL Creatinine 1.22 (0.66-1.25) mg/dL Estimated GFR > 60.0 ML/MIN Glucose 96 (74-106) mg/dL Calcium 9.9 (8.4-10.2) mg/dL Total Bilirubin 0.60 (0.2-1.3) mg/dL AST 72 H (17-59) U/L ALT 41 (0-50) U/L Alkaline Phosphatase 27 L (38-126) U/L Troponin I < 0.012 (0.000-0.034) ng/mL Serum Total Protein 6.9 (6.3-8.2) g/dL Albumin 4.1 (3.5-5.0) g/dL Urine Color (YELLOW) Urine Appearance (CLEAR) Urine pH (5-6) Ur Specific [place] (1.005-1.025) Urine Protein (Negative) Urine Ketones (NEGATIVE) Urine Blood (0-5) Ace/ul Urine Nitrite (NEGATIVE) Urine Bilirubin (NEGATIVE) Urine Urobilinogen (0-1) mg/dL Ur Leukocyte Esterase (NEGATIVE) Urine WBC (Auto) (0-5) /HPF Urine RBC (Auto) (0-2) /HPF U Epithel Cells (Auto) (FEW) /HPF Urine Bacteria (Auto) (NEGATIVE) /HPF Urine Mucus (Auto) (NEGATIVE) /HPF Urine Culture Reflexed (NO) Urine Glucose (NEGATIVE) mg/dL Salicylates < 1.0 L (2-20) mg/dL Urine Opiates Level (NEGATIVE) Ur Methadone (NEGATIVE) Acetaminophen < 10 L (10-30) ug/ml Urine Barbiturates (NEGATIVE) Ur Phencyclidine (PCP) (NEGATIVE) Urine Amphetamine (NEGATIVE) U Benzodiazepine Level (NEGATIVE) Urine Cocaine (NEGATIVE) Urine Marijuana (THC) (NEGATIVE) Ethyl Alcohol < 10 (0-10) mg/dL 10/19/18 10/19/18 10/19/18 Range/Units 04:45 04:45 04:45 WBC 8.4 (4.0-10.5) K/mm3 RBC 5.31 (4.1-5.6) M/mm3 Hgb 16.8 (12.5-18.0) gm/dl Hct 50.7 H (42-50) % MCV 95.5 (78-100) fl MCH 31.6 (26-32) pg MCHC 33.1 (32-36) g/dl RDW 13.1 (11.5-14.0) % Plt Count 161 (150-450) K/mm3 MPV 9.5 (6-9.5) fl Gran % 58.2 (36.0-66.0) % Eos # (Auto) 0.35 (0-0.5) Absolute Lymphs (auto) 2.27 (1.0-4.6) Absolute Monos (auto) 0.86 (0.0-1.3) Lymphocytes % 27.0 (24.0-44.0) % Monocytes % 10.2 (0.0-12.0) % Eosinophils % 4.2 (0.00-5.0) % Basophils % 0.4 (0.0-0.4) % Absolute Granulocytes 4.89 (1.4-6.9) Basophils # 0.03 (0-0.4) Puncture Site pCO2 (35-45) mmHg pO2 (75-100) mmHg Base Excess (-2.0-2.0) O2 Saturation (94-100) g/dF ABG pH (7.35-7.45) ABG HCO3 (22-28) ABG O2 Sat (Measured) (95-100) % Chandler Test A-a Gradient a/A Ratio Hemoglobin Carboxyhemoglobin (0.0-6.9) % THgb Methemoglobin (1.4-1.5) % Temperature C POC O2 Flow Rate % Sodium 139 (137-145) mmol/L Potassium 3.9 (3.5-5.1) mmol/L Chloride 107 (98-107) mmol/L Carbon Dioxide 27 (22-30) mmol/L Anion Gap 9.2 (5-15) MEQ/L BUN 19 (9-20) mg/dL Creatinine 0.97 (0.66-1.25) mg/dL Estimated GFR > 60.0 ML/MIN Glucose 94 (74-106) mg/dL Calcium 9.2 (8.4-10.2) mg/dL Total Bilirubin 0.60 (0.2-1.3) mg/dL AST 61 H (17-59) U/L ALT 37 (0-50) U/L Alkaline Phosphatase 23 L (38-126) U/L Troponin I < 0.012 (0.000-0.034) ng/mL Serum Total Protein 6.3 (6.3-8.2) g/dL Albumin 3.6 (3.5-5.0) g/dL Urine Color (YELLOW) Urine Appearance (CLEAR) Urine pH (5-6) Ur Specific [place] (1.005-1.025) Urine Protein (Negative) Urine Ketones (NEGATIVE) Urine Blood (0-5) Ace/ul Urine Nitrite (NEGATIVE) Urine Bilirubin (NEGATIVE) Urine Urobilinogen (0-1) mg/dL Ur Leukocyte Esterase (NEGATIVE) Urine WBC (Auto) (0-5) /HPF Urine RBC (Auto) (0-2) /HPF U Epithel Cells (Auto) (FEW) /HPF Urine Bacteria (Auto) (NEGATIVE) /HPF Urine Mucus (Auto) (NEGATIVE) /HPF Urine Culture Reflexed (NO) Urine Glucose (NEGATIVE) mg/dL Salicylates (2-20) mg/dL Urine Opiates Level (NEGATIVE) Ur Methadone (NEGATIVE) Acetaminophen (10-30) ug/ml Urine Barbiturates (NEGATIVE) Ur Phencyclidine (PCP) (NEGATIVE) Urine Amphetamine (NEGATIVE) U Benzodiazepine Level (NEGATIVE) Urine Cocaine (NEGATIVE) Urine Marijuana (THC) (NEGATIVE) Ethyl Alcohol (0-10) mg/dL 10/19/18 Range/Units 07:41 WBC (4.0-10.5) K/mm3 RBC (4.1-5.6) M/mm3 Hgb (12.5-18.0) gm/dl Hct (42-50) % MCV (78-100) fl MCH (26-32) pg MCHC (32-36) g/dl RDW (11.5-14.0) % Plt Count (150-450) K/mm3 MPV (6-9.5) fl Gran % (36.0-66.0) % Eos # (Auto) (0-0.5) Absolute Lymphs (auto) (1.0-4.6) Absolute Monos (auto) (0.0-1.3) Lymphocytes % (24.0-44.0) % Monocytes % (0.0-12.0) % Eosinophils % (0.00-5.0) % Basophils % (0.0-0.4) % Absolute Granulocytes (1.4-6.9) Basophils # (0-0.4) Puncture Site pCO2 (35-45) mmHg pO2 (75-100) mmHg Base Excess (-2.0-2.0) O2 Saturation (94-100) g/dF ABG pH (7.35-7.45) ABG HCO3 (22-28) ABG O2 Sat (Measured) (95-100) % Chandler Test A-a Gradient a/A Ratio Hemoglobin Carboxyhemoglobin (0.0-6.9) % THgb Methemoglobin (1.4-1.5) % Temperature C POC O2 Flow Rate % Sodium (137-145) mmol/L Potassium (3.5-5.1) mmol/L Chloride (98-107) mmol/L Carbon Dioxide (22-30) mmol/L Anion Gap (5-15) MEQ/L BUN (9-20) mg/dL Creatinine (0.66-1.25) mg/dL Estimated GFR ML/MIN Glucose (74-106) mg/dL Calcium (8.4-10.2) mg/dL Total Bilirubin (0.2-1.3) mg/dL AST (17-59) U/L ALT (0-50) U/L Alkaline Phosphatase (38-126) U/L Troponin I < 0.012 (0.000-0.034) ng/mL Serum Total Protein (6.3-8.2) g/dL Albumin (3.5-5.0) g/dL Urine Color (YELLOW) Urine Appearance (CLEAR) Urine pH (5-6) Ur Specific [place] (1.005-1.025) Urine Protein (Negative) Urine Ketones (NEGATIVE) Urine Blood (0-5) Ace/ul Urine Nitrite (NEGATIVE) Urine Bilirubin (NEGATIVE) Urine Urobilinogen (0-1) mg/dL Ur Leukocyte Esterase (NEGATIVE) Urine WBC (Auto) (0-5) /HPF Urine RBC (Auto) (0-2) /HPF U Epithel Cells (Auto) (FEW) /HPF Urine Bacteria (Auto) (NEGATIVE) /HPF Urine Mucus (Auto) (NEGATIVE) /HPF Urine Culture Reflexed (NO) Urine Glucose (NEGATIVE) mg/dL Salicylates (2-20) mg/dL Urine Opiates Level (NEGATIVE) Ur Methadone (NEGATIVE) Acetaminophen (10-30) ug/ml Urine Barbiturates (NEGATIVE) Ur Phencyclidine (PCP) (NEGATIVE) Urine Amphetamine (NEGATIVE) U Benzodiazepine Level (NEGATIVE) Urine Cocaine (NEGATIVE) Urine Marijuana (THC) (NEGATIVE) Ethyl Alcohol (0-10) mg/dL - Radiology Impressions Radiology Exams & Impressions: Radiology Procedures Category Date Time Status CERVICAL SPINE WO CONTRAST [CT] Stat Exams 10/18/18 23:07 Taken CHEST 1 VIEW (PORTABLE) Stat Exams 10/18/18 23:00 Taken HEAD WITHOUT CONTRAST [CT] Stat Exams 10/18/18 23:07 Taken - Other Procedures and Tests Respiratory Therapy 10/19/18 03:36 Oxygen Nasal Cannula 2 lpm Respiratory Therapy Consult ROUTINE 10/19/18 06:16 Respiratory Therapy Assessment DAILY Assessment/Plan (1) Decreased level of consciousness Current Visit: Yes Status: Acute Assessment & Plan: advised not to take any more old medication, he states they have been thrown in the garbage and advised to followup with Dr Samuel Code(s): R40.4 - TRANSIENT ALTERATION OF AWARENESS (2) Substance abuse Current Visit: Yes Status: Acute Code(s): F19.10 - OTHER PSYCHOACTIVE SUBSTANCE ABUSE, UNCOMPLICATED Hospital Summary - Vitals & Intake/Output Vital Signs: Vital Signs Temperature 97.5 F 10/19/18 07:03 Pulse Rate 70 10/19/18 07:03 Respiratory Rate 18 10/19/18 07:03 Blood Pressure 118/77 10/19/18 07:03 O2 Sat by Pulse Oximetry 96 10/19/18 07:03 Oxygen-Last Documented O2 Percentage 2 Liters = 28% Intake & Output: Intake & Output 10/16/18 10/17/18 10/18/18 10/19/18 11:59 11:59 11:59 11:59 Intake Total 1000 Output Total 1125 Balance -125 Weight 83 kg - Lab Result Diagrams: 10/19/18 04:45 10/19/18 04:45 Lab Results-Last 24 Hrs: Lab Results-Last 24 Hours 10/18/18 10/18/18 10/18/18 Range/Units 00:04 00:04 23:14 WBC 8.6 (4.0-10.5) K/mm3 RBC 5.08 (4.1-5.6) M/mm3 Hgb 16.0 (12.5-18.0) gm/dl Hct 48.2 (42-50) % MCV 94.9 (78-100) fl MCH 31.5 (26-32) pg MCHC 33.2 (32-36) g/dl RDW 12.9 (11.5-14.0) % Plt Count 206 (150-450) K/mm3 MPV 10.0 H (6-9.5) fl Gran % 54.6 (36.0-66.0) % Eos # (Auto) 0.29 (0-0.5) Absolute Lymphs (auto) 2.81 (1.0-4.6) Absolute Monos (auto) 0.76 (0.0-1.3) Lymphocytes % 32.6 (24.0-44.0) % Monocytes % 8.8 (0.0-12.0) % Eosinophils % 3.4 (0.00-5.0) % Basophils % 0.6 (0.0-0.4) % Absolute Granulocytes 4.72 (1.4-6.9) Basophils # 0.05 (0-0.4) Puncture Site pCO2 (35-45) mmHg pO2 (75-100) mmHg Base Excess (-2.0-2.0) O2 Saturation (94-100) g/dF ABG pH (7.35-7.45) ABG HCO3 (22-28) ABG O2 Sat (Measured) (95-100) % Chandler Test A-a Gradient a/A Ratio Hemoglobin Carboxyhemoglobin (0.0-6.9) % THgb Methemoglobin (1.4-1.5) % Temperature C POC O2 Flow Rate % Sodium (137-145) mmol/L Potassium (3.5-5.1) mmol/L Chloride (98-107) mmol/L Carbon Dioxide (22-30) mmol/L Anion Gap (5-15) MEQ/L BUN (9-20) mg/dL Creatinine (0.66-1.25) mg/dL Estimated GFR ML/MIN Glucose (74-106) mg/dL Calcium (8.4-10.2) mg/dL Total Bilirubin (0.2-1.3) mg/dL AST (17-59) U/L ALT (0-50) U/L Alkaline Phosphatase (38-126) U/L Troponin I (0.000-0.034) ng/mL Serum Total Protein (6.3-8.2) g/dL Albumin (3.5-5.0) g/dL Urine Color YELLOW (YELLOW) Urine Appearance CLEAR (CLEAR) Urine pH 7.0 (5-6) Ur Specific [place] 1.018 (1.005-1.025) Urine Protein NEGATIVE (Negative) Urine Ketones NEGATIVE (NEGATIVE) Urine Blood NEGATIVE (0-5) Ace/ul Urine Nitrite NEGATIVE (NEGATIVE) Urine Bilirubin NEGATIVE (NEGATIVE) Urine Urobilinogen NEGATIVE (0-1) mg/dL Ur Leukocyte Esterase TRACE (NEGATIVE) Urine WBC (Auto) 6-10 (0-5) /HPF Urine RBC (Auto) 0-2 (0-2) /HPF U Epithel Cells (Auto) RARE (FEW) /HPF Urine Bacteria (Auto) NONE SEEN (NEGATIVE) /HPF Urine Mucus (Auto) SLIGHT (NEGATIVE) /HPF Urine Culture Reflexed NO (NO) Urine Glucose NEGATIVE (NEGATIVE) mg/dL Salicylates (2-20) mg/dL Urine Opiates Level NEGATIVE (NEGATIVE) Ur Methadone NEGATIVE (NEGATIVE) Acetaminophen (10-30) ug/ml Urine Barbiturates NEGATIVE (NEGATIVE) Ur Phencyclidine (PCP) NEGATIVE (NEGATIVE) Urine Amphetamine POSITIVE (NEGATIVE) U Benzodiazepine Level NEGATIVE (NEGATIVE) Urine Cocaine NEGATIVE (NEGATIVE) Urine Marijuana (THC) POSITIVE (NEGATIVE) Ethyl Alcohol (0-10) mg/dL 10/18/18 10/18/18 10/19/18 Range/Units 23:14 23:30 00:00 WBC (4.0-10.5) K/mm3 RBC (4.1-5.6) M/mm3 Hgb (12.5-18.0) gm/dl Hct (42-50) % MCV (78-100) fl MCH (26-32) pg MCHC (32-36) g/dl RDW (11.5-14.0) % Plt Count (150-450) K/mm3 MPV (6-9.5) fl Gran % (36.0-66.0) % Eos # (Auto) (0-0.5) Absolute Lymphs (auto) (1.0-4.6) Absolute Monos (auto) (0.0-1.3) Lymphocytes % (24.0-44.0) % Monocytes % (0.0-12.0) % Eosinophils % (0.00-5.0) % Basophils % (0.0-0.4) % Absolute Granulocytes (1.4-6.9) Basophils # (0-0.4) Puncture Site RIGHT RADIAL pCO2 43 (35-45) mmHg pO2 64 L (75-100) mmHg Base Excess 0.7 (-2.0-2.0) O2 Saturation 90.2 L (94-100) g/dF ABG pH 7.39 (7.35-7.45) ABG HCO3 26.0 (22-28) ABG O2 Sat (Measured) 94.2 L (95-100) % Chandler Test YES A-a Gradient 32 a/A Ratio 0.67 Hemoglobin 15.9 Carboxyhemoglobin 4.0 (0.0-6.9) % THgb Methemoglobin 0.3 L (1.4-1.5) % Temperature 37.0 C POC O2 Flow Rate 21 % Sodium 139 (137-145) mmol/L Potassium 3.8 3.4 L (3.5-5.1) mmol/L Chloride 103 (98-107) mmol/L Carbon Dioxide 28 (22-30) mmol/L Anion Gap 11.2 (5-15) MEQ/L BUN 21 H (9-20) mg/dL Creatinine 1.22 (0.66-1.25) mg/dL Estimated GFR > 60.0 ML/MIN Glucose 96 (74-106) mg/dL Calcium 9.9 (8.4-10.2) mg/dL Total Bilirubin 0.60 (0.2-1.3) mg/dL AST 72 H (17-59) U/L ALT 41 (0-50) U/L Alkaline Phosphatase 27 L (38-126) U/L Troponin I < 0.012 (0.000-0.034) ng/mL Serum Total Protein 6.9 (6.3-8.2) g/dL Albumin 4.1 (3.5-5.0) g/dL Urine Color (YELLOW) Urine Appearance (CLEAR) Urine pH (5-6) Ur Specific [place] (1.005-1.025) Urine Protein (Negative) Urine Ketones (NEGATIVE) Urine Blood (0-5) Ace/ul Urine Nitrite (NEGATIVE) Urine Bilirubin (NEGATIVE) Urine Urobilinogen (0-1) mg/dL Ur Leukocyte Esterase (NEGATIVE) Urine WBC (Auto) (0-5) /HPF Urine RBC (Auto) (0-2) /HPF U Epithel Cells (Auto) (FEW) /HPF Urine Bacteria (Auto) (NEGATIVE) /HPF Urine Mucus (Auto) (NEGATIVE) /HPF Urine Culture Reflexed (NO) Urine Glucose (NEGATIVE) mg/dL Salicylates < 1.0 L (2-20) mg/dL Urine Opiates Level (NEGATIVE) Ur Methadone (NEGATIVE) Acetaminophen < 10 L (10-30) ug/ml Urine Barbiturates (NEGATIVE) Ur Phencyclidine (PCP) (NEGATIVE) Urine Amphetamine (NEGATIVE) U Benzodiazepine Level (NEGATIVE) Urine Cocaine (NEGATIVE) Urine Marijuana (THC) (NEGATIVE) Ethyl Alcohol < 10 (0-10) mg/dL 10/19/18 10/19/18 10/19/18 Range/Units 04:45 04:45 04:45 WBC 8.4 (4.0-10.5) K/mm3 RBC 5.31 (4.1-5.6) M/mm3 Hgb 16.8 (12.5-18.0) gm/dl Hct 50.7 H (42-50) % MCV 95.5 (78-100) fl MCH 31.6 (26-32) pg MCHC 33.1 (32-36) g/dl RDW 13.1 (11.5-14.0) % Plt Count 161 (150-450) K/mm3 MPV 9.5 (6-9.5) fl Gran % 58.2 (36.0-66.0) % Eos # (Auto) 0.35 (0-0.5) Absolute Lymphs (auto) 2.27 (1.0-4.6) Absolute Monos (auto) 0.86 (0.0-1.3) Lymphocytes % 27.0 (24.0-44.0) % Monocytes % 10.2 (0.0-12.0) % Eosinophils % 4.2 (0.00-5.0) % Basophils % 0.4 (0.0-0.4) % Absolute Granulocytes 4.89 (1.4-6.9) Basophils # 0.03 (0-0.4) Puncture Site pCO2 (35-45) mmHg pO2 (75-100) mmHg Base Excess (-2.0-2.0) O2 Saturation (94-100) g/dF ABG pH (7.35-7.45) ABG HCO3 (22-28) ABG O2 Sat (Measured) (95-100) % Chandler Test A-a Gradient a/A Ratio Hemoglobin Carboxyhemoglobin (0.0-6.9) % THgb Methemoglobin (1.4-1.5) % Temperature C POC O2 Flow Rate % Sodium 139 (137-145) mmol/L Potassium 3.9 (3.5-5.1) mmol/L Chloride 107 (98-107) mmol/L Carbon Dioxide 27 (22-30) mmol/L Anion Gap 9.2 (5-15) MEQ/L BUN 19 (9-20) mg/dL Creatinine 0.97 (0.66-1.25) mg/dL Estimated GFR > 60.0 ML/MIN Glucose 94 (74-106) mg/dL Calcium 9.2 (8.4-10.2) mg/dL Total Bilirubin 0.60 (0.2-1.3) mg/dL AST 61 H (17-59) U/L ALT 37 (0-50) U/L Alkaline Phosphatase 23 L (38-126) U/L Troponin I < 0.012 (0.000-0.034) ng/mL Serum Total Protein 6.3 (6.3-8.2) g/dL Albumin 3.6 (3.5-5.0) g/dL Urine Color (YELLOW) Urine Appearance (CLEAR) Urine pH (5-6) Ur Specific Bushnell (1.005-1.025) Urine Protein (Negative) Urine Ketones (NEGATIVE) Urine Blood (0-5) Ace/ul Urine Nitrite (NEGATIVE) Urine Bilirubin (NEGATIVE) Urine Urobilinogen (0-1) mg/dL Ur Leukocyte Esterase (NEGATIVE) Urine WBC (Auto) (0-5) /HPF Urine RBC (Auto) (0-2) /HPF U Epithel Cells (Auto) (FEW) /HPF Urine Bacteria (Auto) (NEGATIVE) /HPF Urine Mucus (Auto) (NEGATIVE) /HPF Urine Culture Reflexed (NO) Urine Glucose (NEGATIVE) mg/dL Salicylates (2-20) mg/dL Urine Opiates Level (NEGATIVE) Ur Methadone (NEGATIVE) Acetaminophen (10-30) ug/ml Urine Barbiturates (NEGATIVE) Ur Phencyclidine (PCP) (NEGATIVE) Urine Amphetamine (NEGATIVE) U Benzodiazepine Level (NEGATIVE) Urine Cocaine (NEGATIVE) Urine Marijuana (THC) (NEGATIVE) Ethyl Alcohol (0-10) mg/dL 10/19/18 Range/Units 07:41 WBC (4.0-10.5) K/mm3 RBC (4.1-5.6) M/mm3 Hgb (12.5-18.0) gm/dl Hct (42-50) % MCV (78-100) fl MCH (26-32) pg MCHC (32-36) g/dl RDW (11.5-14.0) % Plt Count (150-450) K/mm3 MPV (6-9.5) fl Gran % (36.0-66.0) % Eos # (Auto) (0-0.5) Absolute Lymphs (auto) (1.0-4.6) Absolute Monos (auto) (0.0-1.3) Lymphocytes % (24.0-44.0) % Monocytes % (0.0-12.0) % Eosinophils % (0.00-5.0) % Basophils % (0.0-0.4) % Absolute Granulocytes (1.4-6.9) Basophils # (0-0.4) Puncture Site pCO2 (35-45) mmHg pO2 (75-100) mmHg Base Excess (-2.0-2.0) O2 Saturation (94-100) g/dF ABG pH (7.35-7.45) ABG HCO3 (22-28) ABG O2 Sat (Measured) (95-100) % Chandler Test A-a Gradient a/A Ratio Hemoglobin Carboxyhemoglobin (0.0-6.9) % THgb Methemoglobin (1.4-1.5) % Temperature C POC O2 Flow Rate % Sodium (137-145) mmol/L Potassium (3.5-5.1) mmol/L Chloride (98-107) mmol/L Carbon Dioxide (22-30) mmol/L Anion Gap (5-15) MEQ/L BUN (9-20) mg/dL Creatinine (0.66-1.25) mg/dL Estimated GFR ML/MIN Glucose (74-106) mg/dL Calcium (8.4-10.2) mg/dL Total Bilirubin (0.2-1.3) mg/dL AST (17-59) U/L ALT (0-50) U/L Alkaline Phosphatase (38-126) U/L Troponin I < 0.012 (0.000-0.034) ng/mL Serum Total Protein (6.3-8.2) g/dL Albumin (3.5-5.0) g/dL Urine Color (YELLOW) Urine Appearance (CLEAR) Urine pH (5-6) Ur Specific [place] (1.005-1.025) Urine Protein (Negative) Urine Ketones (NEGATIVE) Urine Blood (0-5) Ace/ul Urine Nitrite (NEGATIVE) Urine Bilirubin (NEGATIVE) Urine Urobilinogen (0-1) mg/dL Ur Leukocyte Esterase (NEGATIVE) Urine WBC (Auto) (0-5) /HPF Urine RBC (Auto) (0-2) /HPF U Epithel Cells (Auto) (FEW) /HPF Urine Bacteria (Auto) (NEGATIVE) /HPF Urine Mucus (Auto) (NEGATIVE) /HPF Urine Culture Reflexed (NO) Urine Glucose (NEGATIVE) mg/dL Salicylates (2-20) mg/dL Urine Opiates Level (NEGATIVE) Ur Methadone (NEGATIVE) Acetaminophen (10-30) ug/ml Urine Barbiturates (NEGATIVE) Ur Phencyclidine (PCP) (NEGATIVE) Urine Amphetamine (NEGATIVE) U Benzodiazepine Level (NEGATIVE) Urine Cocaine (NEGATIVE) Urine Marijuana (THC) (NEGATIVE) Ethyl Alcohol (0-10) mg/dL - Radiology Exams Ordered Rad Exams-Entire Visit: Radiology Procedures Category Date Time Status CERVICAL SPINE WO CONTRAST [CT] Stat Exams 10/18/18 23:07 Taken CHEST 1 VIEW (PORTABLE) Stat Exams 10/18/18 23:00 Taken HEAD WITHOUT CONTRAST [CT] Stat Exams 10/18/18 23:07 Taken - Procedures and Test Procedures and Tests throughout Hospitalization: Therapy Orders & Screens 10/19/18 03:36 Oxygen Nasal Cannula 2 lpm Comment: Respiratory Therapy Consult ROUTINE Comment: Reason For Exam: 10/19/18 06:16 Respiratory Therapy Assessment DAILY Comment: Diagnosis: substance abuse, decreased LOC - Discharge Disposition: Home, Self-Care Condition: Good Prescriptions: Continue Pregabalin [Lyrica 100Mg] 300 mg PO BID Metoprolol Tartrate 25 mg [Lopressor 25MG Tab] 50 mg PO DAILY Aspirin 81 gm Chew [Baby Aspirin 81 mg Chew] 81 mg PO DAILY Tiotropium Br/Olodaterol HCl [Stiolto Respimat Inhal [place]] 2 puff IH QAM Albuterol Sulfate [Ventolin Hfa] 2 puff IH UD PRN PRN Reason: breathing Calcium Citrate/Vitamin D2 [Vahid-Citrate Plus Vitamin D Tab] 1 tab PO DAILY Magnesium Oxide [Magnesium] 400 mg PO DAILY Omeprazole 40 mg PO DAILY Multivitamin [Multivitamins] 1 each PO DAILY Discontinued Mirtazapine [Remeron] 45 mg PO HS Follow up with: LUCIAN SAMUEL [Primary Care Provider] - 1 Week
--- NOTE | 2018-10-19 10:14 | XRAY ---
Indication: Possible overdose. Comparison: April 15, 2018. Portable chest demonstrates new minimal left costophrenic angle linear opacity, possible atelectasis/scarring. Remaining heart and lungs unremarkable again with left-sided dual-lead pacemaker. Bony thorax intact.
--- NOTE | 2018-10-19 10:14 | XRAY ---
Indication: Loss of consciousness. Possible overdose. Multiple contiguous axial images obtained through the head without contrast. Comparison: April 15, 2018. Again normal appearing brain parenchyma, ventricles, and bony calvarium. Minimal mucosal thickening right ethmoid sinus. Mastoid air cells are clear. Impression: Minimal paranasal sinus disease in a otherwise normal CT head without contrast exam. Comment: Preliminary interpretation was made by [facility]. No discrepancy. CTDI 47.89
--- NOTE | 2018-10-19 10:16 | XRAY ---
Indication: Loss of consciousness. Possible overdose. Multiple contiguous axial images obtained through the cervical spine. Sagittal and coronal reformatted images obtained. Comparison: None. Axial images negative for acute fracture, suspicious bony lesions, or spinal canal stenosis. Mild C5-T1 degenerative endplate spurring and mild multilevel bilateral degenerative facet hypertrophy. Sagittal and coronal reformatted images demonstrates normal alignment with C6-C7 disc space narrowing. No acute compression fracture, subluxation, or jumped facet. Normal-appearing craniocervical junction. Visualized noncontrasted soft tissues demonstrate minimal bilateral carotid calcifications. Lung apices clear. CT head reported separately. Impression: 1. Negative acute fracture/subluxation. 2. Multilevel degenerative changes. Comment: Preliminary interpretation was made by [facility]. No discrepancy. CTDI 54.62
[2018-10-19 11:45] VITALS: O2SAT 97
[2018-10-19 13:20] VITALS: BP 139/87; PULSE 69
== END 2018-10-19 13:10 | disposition home or self-care (01) ==
LOC: ED 22:40 → ICU 10-19 03:31
PROVIDERS: ADMIT Family Medicine; ATTEND Family Medicine
DX: R40.4 Transient alteration of awareness (principal); F19.10 Other psychoactive substance abuse, uncomplicated; Z79.899 Other long term (current) drug therapy; I10 Essential (primary) hypertension; J44.9 Chronic obstructive pulmonary disease, unspecified; Z95.0 Presence of cardiac pacemaker; F17.200 Nicotine dependence, unspecified, uncomplicated
CPT/HCPCS: 36000; 36415; 36600; 70450; 71045; 72125; 80053; 80307; 81001; 82375; 82803; 84484; 85025; 87086; 93005; 93268; 96360; 96374; 96375; 99285; G0378; G0481; J2310; G0480

== ENCOUNTER 2018-12-18 10:55 | Emergency (ER) | payer MEDICAID ==
[2018-12-18] MEDS ORDERED: Augmentin 500-125 Tablet PO ONE (10:59)
[2018-12-18] MEDS ORDERED: Adacel Vial IM ONE ×2 (10:59→11:56)
[2018-12-18] MEDS ORDERED: BACIGUENT PACKET TP ONE (10:59)
[2018-12-18] MEDS ORDERED: NORCO 5/325 MG PO ONE (11:00)
--- NOTE | 2018-12-18 11:06 | ERPHSYRPT ---
- History of Present Illness Time Seen by Provider: 12/18/18 11:00 Source: patient Exam Limitations: no limitations Physician History: 58-year-old white male arrives with complaint of a dog bite to his left lower leg symptoms since just prior to arrival. Patient brought by medics. According to patient he was at a local [employer]ainism he saw several dogs approaching Saturday school kids he went up in at the dogs and one of them began to bite him. He has a single dog bite on his left leg which manifests as a 2 lacerations approximately 2.5 cm anteriorly and a puncture wound on the posterior left calf. He has full range of motion to his left lower extremities, any sensation is intact to his left foot. He does not have any other complaints other than pain in his left leg. Past medical history includes a stroke COPD cardiac pacer neuropathy, atherosclerotic coronary artery disease, high blood pressure, PR Past surgical history includes cardiac catheter, pacer, cholecystectomy, orthopedic surgery, prostate surgery Method of Injury: other (dog bite left leg) Occurred: just prior to arrival Lower Extremities Pain: leg: left Modifying Factors: Improves With: other (dog bite left leg 2.5 cm laceration x2 anteriorly puncture wound times one left lateral posterior calf) Associated Symptoms: none Allergies/Adverse Reactions: codeine Allergy (Severe, Verified 04/15/18 10:43) throat swelling Home Medications: Aspirin 81 gm Chew [Baby Aspirin 81 mg Chew] 81 mg PO DAILY 04/15/18 [ History] Metoprolol Tartrate 25 mg [Lopressor 25MG Tab] 50 mg PO DAILY 04/15/18 [ History] Pregabalin [Lyrica 100Mg] 300 mg PO BID 04/15/18 [History] Albuterol Sulfate [Ventolin Hfa] 2 puff IH UD PRN 10/18/18 [History] Tiotropium Br/Olodaterol HCl [Stiolto Respimat Inhal [place]] 2 puff IH QAM [History] Calcium Citrate/Vitamin D2 [Vahid-Citrate Plus Vitamin D Tab] 1 tab PO DAILY 10/19 [History] Magnesium Oxide [Magnesium] 400 mg PO DAILY 10/19/18 [History] Multivitamin [Multivitamins] 1 each PO DAILY 10/19/18 [History] Omeprazole 40 mg PO DAILY 10/19/18 [History] Hx Tetanus, Diphtheria Vaccination/Date Given: Yes Hx Influenza Vaccination/Date Given: Yes Hx Pneumococcal Vaccination/Date Given: Yes - Review of Systems Constitutional: No Fever, No Chills Eyes: No Symptoms Ears, Nose, & Throat: No Symptoms Respiratory: No Cough, No Dyspnea Cardiac: No Chest Pain, No Edema, No Syncope Abdominal/Gastrointestinal: No Abdominal Pain, No Nausea, No Vomiting, No Diarrhea Genitourinary Symptoms: No Dysuria Musculoskeletal: Other (dog bite left leg) Skin: Other (laceration x2 2.5 cm anterior leg (left) puncture wound left posterior lateral calf) Neurological: No Dizziness, No Focal Weakness, No Sensory Changes Psychological: No Symptoms Endocrine: No Symptoms All Other Systems: Reviewed and Negative - Past Medical History Pertinent Past Medical History: Yes Neurological History: Migraines, TIA ENT History: Cataracts Cardiac History: Myocardial Infarction (PR), Hypertension, Other Respiratory History: COPD, Emphysema, Other Endocrine Medical History: No Pertinent History Musculoskeletal History: Other GI Medical History: No Pertinent History, GERD History: No Pertinent History Psycho-Social History: Panic Disorder Male Reproductive Disorders: Prostate Problems Other Medical History: atrial pacemaker - Past Surgical History Past Surgical History: Yes Neuro Surgical History: No Pertinent History Cardiac: Cardiac Catheterization, Pacemaker Respiratory: No Pertinent History Gastrointestinal: Cholecystectomy Musculoskeletal: Orthopedic Surgery Male Surgical History: Prostate Surgery Other Surgical History: rt elbow replacement fx left foot ,prostate cancer - Social History Smoking Status: Current every day smoker How long have you smoked: 40 yrs Exposure to second hand smoke: No Drug Use: marijuana, methamphetamines Patient Lives Alone: No - Nursing Vital Signs Nursing Vital Signs: Initial Vital Signs Temperature 98.3 F 12/18/18 10:57 Pulse Rate 75 12/18/18 10:57 Respiratory Rate 20 12/18/18 10:57 Blood Pressure 145/88 12/18/18 10:57 O2 Sat by Pulse Oximetry 98 12/18/18 10:57 Pain Scale Pain Intensity 7 - Physical Exam General Appearance: mild distress, alert Eyes, Ears, Nose, Throat Exam: moist mucous membranes Neck Exam: non-tender, supple Cardiovascular/Respiratory Exam: chest non-tender, normal breath sounds, regular rate/rhythm, no respiratory distress Gastrointestinal/Abdominal Exam: non-tender, guarding Back Exam: normal inspection, No vertebral tenderness Hips Exam: bilateral: non-tender, normal inspection, normal range of motion, no evidence of injury Legs Exam: right leg: non-tender, normal inspection, left leg: other (left lower leg with 2 2.5 cm lacerations anteriorly (dog bite). On puncture wound posterior laterally on the calf.), bilateral leg: normal range of motion Knees Exam: bilateral knee: non-tender, normal inspection, normal range of motion, no evidence of injury Ankle Exam: bilateral ankle: non-tender, normal inspection, normal range of motion, no evidence of injury Foot Exam: bilateral foot: non-tender, normal inspection, normal range of motion , no evidence of injury DTR - Lower Extremities Exam: ankle (R): 2+, ankle (L): 2+ Neuro/Tendon Exam: normal sensation, normal motor functions Mental Status Exam: alert, oriented x 3, cooperative Skin Exam: laceration (dog bite left leg manifest as two 2.5 cm laceration anteriorly and one puncture woundlleft posterior lateral calf) SpO2 Interpretation: normal (98%) - Course Nursing assessment & vital signs reviewed: Yes Ordered Tests: Active Orders 24 hr Category Date Time Status Wound Care STAT Care 12/18/18 10:59 Active Medication Summary Discontinued Medications Generic Name Dose Route Start Last Admin Trade Name Freq PRN Reason Stop Dose Admin Hydrocodone Bitart/Acetaminophen 1 tab 12/18/18 11:00 [place] 5/325 Mg PO 12/18/18 11:01 STAT ONE Amoxicillin/Clavulanate Potassium 500 mg 12/18/18 10:59 Augmentin 500-125 Tablet PO 12/18/18 11:00 STAT ONE Bacitracin Zinc 0.9 gm 12/18/18 10:59 Baciguent Packet TP 12/18/18 11:00 STAT ONE Diphtheria/Tetanus/Acell Pertussis 0.5 ml 12/18/18 10:59 Adacel Vial IM 12/18/18 11:00 .ONCE ONE - Progress Progress: improved Progress Note: 12/18/18 11:07 58-year-old white male with history of TIA COPD pacer neuropathy atherosclerotic coronary artery disease high blood pressure PR Brought by medics with complaint of a dog bite to the left leg he states he was bitten by a pitbull. Patient has a dog bite to the left leg which manifests itself as two 2.5 cm transverse lacerations anterior left lyon.. And one puncture wound left posterior lateral calf. Patient has full range of motion to the left lower lip extremity dorsal pedal posterior tibial pulses are intact two over four good cap refill all toes sensation intact to all toes. Lacerations left leg will be cleansed bacitracin will be applied no sutures will be needed. Will place patient on Augmentin. Will go ahead give patient DTaP. Will give patient Troy for pain. - Departure Departure Disposition: Home Clinical Impression: Dog bite of left lower leg Qualifiers: Encounter type: initial encounter Qualified Code(s): S81.852A - Open bite, left lower leg, initial encounter Condition: Fair Critical Care Time: No Additional Instructions: Return home. Clean area and apply bacitracin several days daily. Augmentin 500 mg orally 3 times a day x7 days. Troy as prescribed. Followup with your family Dr. Wilson for acute distress or for severe symptoms. Prescriptions: Hydrocodone/APAP 5-325 Tab^^^ [[place] 5-325 Tablet^^^] 1 tab PO Q4HPRN PRN #12 tablet MDD 6 PRN Reason: leg pain Amox Tr/Potass Clav. 500 mg [Augmentin 500-125 Tablet] 500 mg PO TID 7 Days #21 tablet
[2018-12-18] MEDS ORDERED: Augmentin 500-125 Tablet ONE (11:55)
[2018-12-18] MEDS ORDERED: BACIGUENT PACKET ONE (11:55)
[2018-12-18] MEDS ORDERED: NORCO 5/325 MG ONE (11:55)
[2018-12-18 12:16] VITALS: BP 129/90; PULSE 62; O2SAT 97
== END 2018-12-18 12:14 | disposition home or self-care (01) ==
LOC: ED 10:55
DX: S81.852A Open bite, left lower leg, initial encounter (principal); W54.0XXA Bitten by dog, initial encounter
CPT/HCPCS: 90471; 90715; 99284; A9270-GY